=== PATIENT | female | born 1960 | race Hispanic/Latino ===

== ENCOUNTER 2019-09-09 03:55 | Emergency (ER) | payer OTHER ==
[~2019-09-09] VITALS: Ht 154.9 cm; Wt 108.4 kg
[~2019-09-09 03:55] MED LIST: DEXILANT60 MG PO; PANTOPRAZOLE SO40 MG PO
[2019-09-09] MEDS ORDERED: ONDANSETRON HCL INJ 2MG/ML 2ML 2 MG/ML VIAL IV STA (04:14)
[2019-09-09] MEDS ORDERED: PANTOPRAZOLE 40 MG 10ML VIAL IV STA (04:14)
--- NOTE | 2019-09-09 04:20 | Emergency Department Note ---
History of Present Illnes History of Present Illness Chief Complaint: Abdominal Complaints History of Present Illness This is a 59 year old female PRESENTS TO THE ER C/O EPIGASTRIC ABD PAIN RADIATING UP ESOPHAGUS AND TO BACK WITH NAUSEA X1 WEEK; PT STATES SHE WAS SCHEDULED TO HAVE AN EGD ON 09/05/19 FOR HAITAL HERNIA BUT GOT CANCELED D/T ELECTIVE PROCEDURES BEING CANCELED; PT DENIES CP OR SOB; NAD NOTED AT THIS TIME. Historian: Patient Arrival Mode: Car Onset (how long ago): day(s) (7) Location: epigastric Quality: pain Radiation: Reports other (radiates to chest) Onset quality: gradual Duration (how long): day(s) (7) Timing of current episode: constant Progression: worsening Chronicity: chronic Relieving factors: none Exacerbating factors: none Associated symptoms: Reports denies other symptoms Treatments prior to arrival: none (ROBBIE ZEE MD) Past Medical/Family History Physician Review I have reviewed the patient's past medical and family history. Any updates have been documented here. (ROBBIE ZEE MD) Past Medical History Recent Fever: No Clinical Suspicion of Infectio: No New/Unexplained Change in Ment: No Past Medical History: Asthma, Anxiety Other Medical History: HIATAL HERNIA Past Surgical History: Cholecysctectomy Other Surgery: RT ARM SX (ROBBIE ZEE MD) Social History Smoking Cessation: Never Smoker Alcohol Use: None Any Illegal Drug Use: No Physically hurt or threatened: No (ROBBIE ZEE MD) Family History Family history of heart diseas: No (ROBBIE ZEE MD) Other Last Tetanus: unk (ROBBIE ZEE MD) Review of Systems Review of Systems Constitutional: Reports no symptoms EENTM: Reports no symptoms Cardiovascular: Reports no symptoms Respiratory: Reports no symptoms Gastrointestinal: Reports as per HPI Genitourinary: Reports no symptoms Musculoskeletal: Reports no symptoms Integumentary: Reports no symptoms Neurological: Reports no symptoms Psychological: Reports no symptoms Endocrine: Reports no symptoms Hematological/Lymphatic: Reports no symptoms (ROBBIE ZEE MD) Physical Exam Related Data Allergies: Coded Allergies: No Known Allergies (Unverified , 04/20/15) Triage Vital Signs Vital Signs Date Time Temp Pulse Resp B/P (MAP) Pulse Ox O2 Delivery O2 Flow Rate FiO2 09/09/19 04:06 98.4 65 18 164/102 97 Room Air (ROBBIE ZEE MD) Physical Exam CONSTITUTIONAL Constitutional: Present well-developed, Present well-nourished; Absent distressed HENT HENT: Present normocephalic, Present atraumatic, Present oropharynx clear/moist, Present nose normal HENT L/R: Present left ext ear normal, Present right ext ear normal EYES Eyes: Reports PERRL, Reports conjunctivae normal NECK Neck: Present ROM normal PULMONARY Pulmonary: Present effort normal, Present breath sounds normal CARDIOVASCULAR Cardiovascular: Present regular rhythm, Present heart sounds normal, Present capillary refill normal, Present normal rate GASTROINTESTINAL Abdominal: Present soft, Present bowel sounds normal, Present tender (moderate epigastric) GENITOURINARY Genitourinary: Present exam deferred SKIN Skin: Present warm, Present dry MUSCULOSKELETAL Musculoskeletal: Present ROM normal NEUROLOGICAL Neurological: Present alert, Present oriented x 3, Present no gross motor or sensory deficits PSYCHOLOGICAL Psychological: Present mood/affect normal, Present judgement normal (ROBBIE ZEE MD) Procedures 12 Lead ECG Interpretation ECG Interpretation : ECG: ECG 1 Quality Measurement Specialist: Interpreted by ED physician Date: Sep 09, 2019 Time: 04:08 Rhythm: sinus rhythm Rate: normal BPM: 65 QRS axis: left ST segments normal: Yes T waves normal: Yes Clinical Impression: non-specific ECG (ROBBIE ZEE MD) Assessment & Plan Medical Decision Making MDM pt with epigastric pain radiating to chest for 7 days, has h/o hiatal hernia cbc, cmp, ekg, cxr, amylase,lipase, ua, cardiac enzymes, ua ordered to eval for myocardial infarction, intrathoracic abnormality, uti, pancreatitis, electrolyte abnormality protonix 40 mg iv ordered zofran 4 mg iv ordered [address] weeks, labs pending (ROBBIE ZEE MD) MDM Signout received from Dr. Zee to follow-up lab work and imaging. Lab work markable and there were no indication for CT scan given benign ab dominal exam. This patient presents with abdominal pain of unclear etiology. Their evaluation has not identified a emergent etiology for the abdominal pain. Specifically, given the very benign exam, normal laboratory studies, and lack of significant risk factors, I have a very low suspicion for appendicitis, ischemic bowel, bowel perforation, or any other life threatening disease. I have discussed with the patient the level of uncertainty with undifferentiated abdominal pain and clearly explained the need to follow-up as noted on the discharge instructions, or return to the Emergency Department immediately if the pain worsens, develops fever, persistent and uncontrollable vomiting, or for any new symptoms or concerns. I discussed with the patient that this presentation today for abdominal pain could represent a significant risk for an acute abdominal process. Although the tests in the ED were essentially normal, there is still a possibility of a process such as appendicitis, diverticulitis, cholecystitis, ulcer, early bowel obstruction, mesenteric ischemia, kidney stone, or even kidney infection which could subsequently cause disability or . The patient understands that they must return within 24 hours for a recheck or see their physician within 24 hours for re-exam due to the possibility of significant surgical or medical process. (EUSEBIA WEEKS DO) Assessment & Plan Final Impression: (1) Hiatal hernia (2) Gastritis (ROBBIE ZEE MD) Depart Disposition: HOME, SELF-CARE Last Vital Signs Date Time Temp Pulse Resp B/P (MAP) Pulse Ox O2 Delivery O2 Flow Rate FiO2 09/09/19 04:06 98.4 65 18 164/102 97 Room Air (ROBBIE ZEE MD) Home Meds Reported Medications Dexlansoprazole (DEXILANT) 60 Mg Francisco., 60 MG PO DAILY THERAPEUTIC INTERCHANGE WITH PROTONIX PER [facility] 04/20/15 ROBBIE ZEE MD Sep 09, 2019 04:20 EUSEBIA WEEKS DO Sep 15, 2019 23:22
[2019-09-09 04:46] LABS: CLARITY,URINE CLEAR (CLEAR); COLOR,URINE YELLOW (YELLOW); KETONES,URINE NEGATIVE (NEGATIVE); LEUKOCYTE ESTERASE ,URINE 1+ (NEGATIVE); NITRITE,URINE NEGATIVE (NEGATIVE); PROTEIN,URINE DIPSTICK NEGATIVE (NEGATIVE)
[2019-09-09 04:47] LABS: BILIRUBIN,URINE NEGATIVE (NEGATIVE); URINE UROBILINOGEN 0.2 mg/dL (0.2 - 1)
[2019-09-09 04:54] LABS: BACTERIA,URINE FEW /HPF; EPITHELIAL CELLS,URINE FEW /LPF; TRANSITIONAL EPI CELLS,URINE FEW
--- NOTE | 2019-09-09 05:14 | Diagnostic Imaging Report ---
Examination: Single AP view of the chest. COMPARISON: None. INDICATION: Chest pain, epigastric pain IMPRESSION: 1. Lines and Tubes: None 2. Lungs are well-inflated. Linear opacity in the left mid to lower lung likely reflects subsegmental atelectasis. The lungs are otherwise clear. No consolidation or effusion. 3. Cardiomediastinal silhouette is normal. Pulmonary vasculature is normal. 4. No acute bony abnormalities. Signed by: Dr. Bartolome Matthews M.D. on 09/09/2019 5:10 AM
[2019-09-09 05:15] LABS: BASOPHILS # (AUTO) 0.1 (0.0-0.1); BASOPHILS % 0.7 % (0.0-1.0); EOSINOPHILS # (AUTO) 0.2 (0.0-0.4); EOSINOPHILS % 2.5 % (0.0-6.0); HEMATOCRIT 42.3 % (34.2-44.1); HEMOGLOBIN 13.6 g/dL (12.0-16.0); LYMPHOCYTES # (AUTO) 2.1 (1.0-3.2); LYMPHOCYTES % 30.6 % (18.0-39.1); MEAN CORPUSCULAR HEMOGLOBIN 27.5 pg (28-32); MEAN CORPUSCULAR HGB CONC 32.2 g/dL (31-35); MEAN CORPUSCULAR VOLUME 85.5 fL (81-99); MONOCYTES # (AUTO) 0.5 (0.2-0.8); MONOCYTES % 7.2 % (4.4-11.3); NEUTROPHILS # (AUTO) 4.1 (2.1-6.9); NEUTROPHILS % 58.9 % (38.7-80.0); PLATELET COUNT 204 x10e3/uL (140-360); RED BLOOD COUNT 4.95 x10e6/uL (3.6-5.1); RED CELL DISTRIBUTION WIDTH 14.4 % (11.7-14.4)
[2019-09-09 05:35] LABS: AMYLASE 71 U/L (25-125); LIPASE 43 U/L (8-78)
[2019-09-09 06:23] LABS: ALANINE AMINOTRANSFERASE 41 IU/L (0-55); ALBUMIN 3.9 g/dL (3.5-5.0); ALBUMIN/GLOBULIN RATIO 1.1 (0.8-2.0); ALKALINE PHOSPHATASE 80 IU/L (40-150); ANION GAP 13.1 mmol/L (8-16); BLOOD UREA NITROGEN 11 mg/dL (7-26); BUN/CREATININE RATIO 16 (6-25); CALCIUM 9.5 mg/dL (8.4-10.2); CARBON DIOXIDE 23 mmol/L (22-29); CHLORIDE 108 mmol/L (98-107); CREATINE KINASE 115 IU/L (29-168); CREATININE, SERUM 0.69 mg/dL (0.57-1.11); EST GLOMERULAR FILTRATION RATE > 60 ML/MIN (60-); GLUCOSE 115 mg/dL (74-118); POTASSIUM 3.1 mmol/L (3.5-5.1); SODIUM 141 mmol/L (136-145)
[2019-09-09 07:00] VITALS: BP 148/78
== END 2019-09-09 07:18 | disposition home or self-care (01) ==
LOC: ER 04:30
DX: R10.13 Epigastric pain (principal); K29.70 Gastritis, unspecified, without bleeding; K44.9 Diaphragmatic hernia without obstruction or gangrene; F41.9 Anxiety disorder, unspecified; J45.909 Unspecified asthma, uncomplicated
CPT/HCPCS: 36415; 71045; 80053; 81001; 82150; 82550; 82553; 83690; 84484; 85025; 93005; 99284; C9113; J2405